=== PATIENT | male | born 1970 | race Caucasian/White ===

== ENCOUNTER 2022-07-19 09:20 | Emergency (ER) | payer OTHER, SELFPAY ==
[2022-07-19 09:25] VITALS: BP 105/83; PULSE 110; RESP 24; TEMP 36.5; O2SAT 97; BMI 31.0
--- NOTE | 2022-07-19 09:39 | ED.UPPEXIN1 ---
HPI - Extremity Injury (Upper) General Chief Complaint: Extremity Injury, Upper Stated Complaint: RIB PAIN Time Seen by Provider: 07/19/22 09:39 Source: patient Mode of arrival: walk-in History of Present Illness HPI narrative: She presents to emergency department complaining of right rib pain. Patient states he has a history of Vasovagal syncope. He states she's had a full cardiac workup and seen multiple specialists for the same. Yesterday he had one of these episodes and as he was passing out he landed onto his right upper ribs, Because his right arm was abducted. States he's had pain since. He denies any difficulty breathing. He denies any fever, chills, or cough. She states he did not hit his head. And he did not completely pass out as he immediately recovered once he was on the ground. Denies any paresthesias, or weakness. He states he has some abrasion and pain to the elbow. He has not taking anything at home for the pain. He denies any nausea, vomiting, diarrhea, constipation, or abdominal pain. Denies any flank pain, hematuria, dysuria. His been able to walk without any ataxia or antalgia. He denies any neck pain. MD complaint: injury to: Reports right and elbow Related Data Home Medications Medication Instructions Recorded Confirmed albuterol sulfate 90 mcg/actuation 2 inh inhalation Q8H PRN shortness 07/19/22 07/19/22 aerosol inhaler (Ventolin HFA) of breath or wheezing buspirone 10 mg tablet 10 mg PO BID 07/19/22 07/19/22 cholecalciferol (vitamin D3) 1,250 50,000 unit PO QWEEK 07/19/22 07/19/22 mcg (50,000 unit) capsule cyclobenzaprine 10 mg tablet 10 mg PO Q12H 07/19/22 07/19/22 gabapentin 800 mg tablet 800 mg PO Q12H 07/19/22 07/19/22 losartan 100 mg tablet 100 mg PO QDAY 07/19/22 07/19/22 losartan 100 1 tab PO QDAY 07/19/22 07/19/22 mg-hydrochlorothiazide 12.5 mg tablet metoprolol succinate 50 mg 50 mg PO Q12H 07/19/22 07/19/22 tablet,extended release 24 hr omeprazole 20 mg capsule,delayed 20 mg PO QDAY 07/19/22 07/19/22 release Previous Rx's Medication Instructions Recorded hydrocodone 5 mg-acetaminophen 325 1 tab PO Q6H PRN pain 5 days #20 07/19/22 mg tablet tabs lidocaine 5 % topical patch 1 patch topical Q24H #15 ea 07/19/22 (Lidoderm) Allergies Allergy/AdvReac Type Severity Reaction Status Date / Time No Known Drug Allergies Allergy Verified 07/19/22 10:33 Review of Systems ROS Status of ROS 10 or more systems reviewed and unremarkable except as noted in history and below Exam Narrative Exam Narrative: Nurses notes and vital signs reviewed and patient is not hypoxic. General: Nontoxic, Well-appearing and in no apparent distress. Skin: Warm, dry, no pallor noted. No Rash Head: Normocephalic, atraumatic. Neck: Supple, non-tender. Eye: Pupils are equal, round and EOMI. No scleral icterus. Ears, Nose, Mouth, and Throat: TM clear, no posterior oropharynx erythema or nasal mucosal hypertrophy, uvula is mid-line Oral mucosa is moist Cardiovascular: Regular Rate and Rhythm without murmur, gallop or rub. Respiratory: No accessory muscle use or respiratory distress. Lungs are clear to auscultation, no wheezing, rales or rhonchi Chest Wall: Is to palpation to the right anterior lateral ribs 4 and 5. There is no step-offs, crepitance. Small abrasion to the right lateral elbow, tenderness to palpation, full range of motion, distal neurovascularly intact. Back: No midline thoracic or lumbar vertebral tenderness. No CVA tenderness Musculoskeletal: normal ROM, no calf or popliteal tenderness, no lower extremity edema/swelling GI: obese, Abdomen is soft, non-distended. Normal bowel sounds. No masses appreciated. No tenderness to palpation. No rebound, guarding, or rigidity noted. Neurological: A&O x4. No cranial nerve dysfunction observed. No truncal ataxia. Moves all extremities. Sensation intact. Psychiatric: Cooperative and interactive. Normal mood and affect. Constitutional Vital Signs - 24 hr 07/19/22 09:25 Temperature 97.7 F Pulse Rate [Monitor] 110 H Respiratory Rate 24 Blood Pressure [Left Arm] 105/83 H Pulse Oximetry 97 Oxygen Delivery Method Room Air Course Vital Signs Vital signs: Vital Signs Temperature 97.7 F 07/19/22 09:25 Pulse Rate 110 H 07/19/22 09:25 Respiratory Rate 24 07/19/22 09:25 Blood Pressure 105/83 H 07/19/22 09:25 Pulse Oximetry 97 07/19/22 09:25 Oxygen Delivery Method Room Air 07/19/22 09:25 Temperature 97.7 F 07/19/22 09:25 Pulse Rate 110 H 07/19/22 09:25 Respiratory Rate 24 07/19/22 09:25 Blood Pressure 105/83 H 07/19/22 09:25 Pulse Oximetry 97 07/19/22 09:25 Oxygen Delivery Method Room Air 07/19/22 09:25 MDM - Extremity Injury (Upper) MDM Narrative Medical decision making narrative: Patient was given Toradol. He does not have a ride in the emergency department. rib x-ray pending X-ray of rib and elbow were reviewed by me. Patient has a fracture right with #6. PEP was ordered. Discussed with patient. He is advised to take [place] and Lidoderm patch follow-up with primary care doctor. Return to the emergency department if he develops fever, difficulty breathing, he has an approximate concerns. At this time the patient is without objective evidence of an acute process requiring hospitalization or inpatient management. The patient has remained hemodynamically stable. No additional indication for emergent studies at this time. I answered all questions. Discussed discharge instructions including standard anticipatory guidance and what should prompt a return to the emergency department, including if they get worse are not getting better or develops any new or concerning symptoms. I've given them specific time frame in which to follow-up, and who to follow-up with. The patient demonstrates understanding. Patient is nontoxic and stable for discharge with outpatient follow-up. This note was created with the assistance of a speech recognition program. Although the intention is to generate documents that actually reflects the content of the visit, no guarantees can be provided that every mistake has been identified and corrected by editing. Differential Diagnosis Differential diagnosis: Likely fracture of clavicle Discharge Plan Discharge Chief Complaint: Extremity Injury, Upper Clinical Impression: Fracture of six ribs of right side Patient Disposition: Home, Self-Care Time of Disposition Decision: 11:29 Condition: Good Mode of Transportation: Private Vehicle Prescriptions / Home Meds: New hydrocodone-acetaminophen 5-325 mg tablet 1 tab PO Q6H PRN (Reason: pain) 5 Days Qty: 20 0RF lidocaine [Lidoderm] 5 % adhesive patch,medicated 1 patch topical Q24H Qty: 15 0RF Rx Instructions: leave on most painful area for up to 12 hrs No Action albuterol sulfate [Ventolin HFA] 90 mcg/actuation HFA aerosol inhaler 2 inh INHALATION Q8H PRN (Reason: shortness of breath or wheezing) buspirone 10 mg tablet 10 mg PO BID cholecalciferol (vitamin D3) 1,250 mcg (50,000 unit) capsule 50,000 unit PO QWEEK cyclobenzaprine 10 mg tablet 10 mg PO Q12H gabapentin 800 mg tablet 800 mg PO Q12H losartan 100 mg tablet 100 mg PO QDAY Hold Instructions: Order Change metoprolol succinate 50 mg tablet extended release 24 hr 50 mg PO Q12H losartan-hydrochlorothiazide 100-12.5 mg tablet 1 tab PO QDAY omeprazole 20 mg capsule,delayed release(DR/EC) 20 mg PO QDAY Instructions: Rib Fracture (ED) Additional Instructions: Follow-up with primary care doctor Stand Alone Forms: Portal Instructions Referrals: Physician,Non-Staff, MD [Primary Care Provider] - 1 week
--- NOTE | 2022-07-19 09:49 | XR_ITS ---
The [address] [address] Patient Name: JIMMY ROMANO MRN: [id number] date: 1970 Sex: M Assigned Patient Location: ER Current Patient Location: ER Accession/Order Number: [id number] Exam Date: 07/19/2022 10:02 Report Date: 07/19/2022 10:56 At the request of: VIKTOR MARTIN Procedure: XR ribs RT min 3V w CXR1V EXAMINATION: XR ribs RT min 3V w CXR1V HISTORY: pain, fall COMPARISON: No relevant comparison available. FINDINGS: LUNGS: No significant pulmonary parenchymal abnormalities. PLEURA: No pneumothorax, effusion, or pleural thickening. MEDIASTINUM: No visible mass or adenopathy. CARDIAC: No cardiomegaly or cardiac silhouette abnormality. RIBS: Questionable lucency through anterior right sixth rib which could represent a nondisplaced fracture. Old, healed fractures of the anterior left ninth and 10th ribs. OTHER: Negative. IMPRESSION: 1. Suspect nondisplaced anterior right sixth rib fracture. 2. No acute cardiopulmonary process. Electronically authenticated by: VALENCIA SLAUGHTER Date: 07/19/2022 10:56
--- NOTE | 2022-07-19 09:51 | XR_ITS ---
[address] [address] Patient Name: JIMMY ROMANO MRN: [id number] date: 1970 Sex: M Assigned Patient Location: ER Current Patient Location: ED.MAIN Accession/Order Number: [id number] Exam Date: 07/19/2022 10:02 Report Date: 07/19/2022 10:52 At the request of: VIKTOR MARTIN Procedure: XR elbow RT min 3V PROCEDURE: XR elbow RT min 3V HISTORY: pain after falling COMPARISON: None. FINDINGS: BONES:No fracture or dislocation. Mild degenerative changes. SOFT TISSUES:No visible soft tissue swelling. EFFUSION:None visible. OTHER: Negative. IMPRESSION: 1. No acute bone abnormality. Electronically authenticated by: VALENCIA SLAUGHTER Date: 07/19/2022 10:52
[2022-07-19] MEDS: KETOROLAC TROMETHAMINE 60 MG/2 ML VIAL IM (09:55)
== END 2022-07-19 11:54 | disposition home or self-care (01) ==
PROVIDERS: Emergency Provider Emergency Medicine
DX: S22.31XA Fracture of one rib, right side, initial encounter for closed fracture (principal); Z79.899 Other long term (current) drug therapy; E66.9 Obesity, unspecified; W19.XXXA Unspecified fall, initial encounter
CPT/HCPCS: 71101; 73080; 94667; 96372; 99284